=== PATIENT | female | born 1935 | race Caucasian/White ===

== ENCOUNTER 2022-05-01 08:53 | Emergency (ER) | payer OTHER, MEDICARE, BC ==
[2022-05-01] MEDS ORDERED: Lidocaine 1% w/Epinephrine 1:100K 20 ML VIAL ONE (09:54)
[2022-05-01] MEDS ORDERED: Boostrix 0.5 ML (Tdap) VIAL (>/=7 yrs of age) ONE (11:09)
== END 2022-05-01 11:25 | disposition home or self-care (01) ==
LOC: ERS 08:53
DX: S00.03XA Contusion of scalp, initial encounter (principal); M75.31 Calcific tendinitis of right shoulder; W01.0XXA Fall on same level from slipping, tripping and stumbling without subsequent striking against object, initial encounter; Y92.89 Other specified places as the place of occurrence of the external cause; Z79.82 Long term (current) use of aspirin; Z23 Encounter for immunization
CPT/HCPCS: 12001; 70450; 72125; 90471; 90715

== ENCOUNTER 2022-10-11 15:09 | Outpatient (CLI) | payer MEDICARE, BC | END 2022-10-11 15:10 | disposition home or self-care (01) | LOC: BICULT 15:09 | PROVIDERS: ATTEND Otolaryngology Plastic Surgery within the Head & Neck | DX: E04.2 Nontoxic multinodular goiter (principal) | CPT/HCPCS: 76536 ==

== ENCOUNTER 2024-01-20 10:29 | Outpatient (CLI) | payer MEDICARE, BC | END 2024-01-20 10:30 | disposition home or self-care (01) | LOC: BICMAMMO 10:29 | PROVIDERS: ATTEND Family Medicine | DX: Z78.0 Asymptomatic menopausal state (principal); M85.851 Other specified disorders of bone density and structure, right thigh; M85.852 Other specified disorders of bone density and structure, left thigh | CPT/HCPCS: 77080 ==